=== PATIENT | female | born 1970 | race Hispanic/Latino ===

== ENCOUNTER 2023-02-03 23:38 | Emergency (ER) | payer OTHER ==
[~2023-02-03] VITALS: Ht 154.9 cm; Wt 69.9 kg
[2023-02-04 02:07] VITALS: BP 140/63
[2023-02-04] MEDS ORDERED: IBUP-1493 PO (02:08)
== END 2023-02-04 02:19 | disposition home or self-care (01) ==
LOC: EDH 23:38
DX: S96.912A Strain of unspecified muscle and tendon at ankle and foot level, left foot, initial encounter (principal); S80.01XA Contusion of right knee, initial encounter; M25.551 Pain in right hip; M25.512 Pain in left shoulder; E11.9 Type 2 diabetes mellitus without complications; W18.39XA Other fall on same level, initial encounter; Y93.89 Activity, other specified; Y92.89 Other specified places as the place of occurrence of the external cause; Y99.8 Other external cause status
CPT/HCPCS: 73030; 73502; 73562; 73600; 73630

== ENCOUNTER 2023-11-28 19:41 | Emergency (ER) | payer BC ==
[~2023-11-28] VITALS: Ht 154.9 cm; Wt 68.0 kg
[~2023-11-28 19:41] MED LIST: FERR-72 PO; IBUP-1493 PO
[2023-11-28 20:12] LABS: APPEARANCE,URINE CLEAR (CLEAR); BILIRUBIN,URINE NEGATIVE (NEGATIVE); COLOR,URINE LIGHT-YELLOW (YELLOW); GLUCOSE, URINE (UA) >=1000 mg/dL (NEGATIVE); KETONES,URINE NEGATIVE (NEGATIVE); LEUKOCYTE ESTERASE ,URINE NEGATIVE Leu/uL (NEGATIVE); NITRATE,URINE NEGATIVE (NEGATIVE); PROTEIN,URINE NEGATIVE (NEGATIVE); UROBILINOGEN,URINE 0.2 mg/dL (0.2-1.0)
[2023-11-28 20:13] LABS: ADD UA MICROSCOPIC YES; HCG,QUALITATIVE URINE NEGATIVE (NEGATIVE)
[2023-11-28 20:14] LABS: SQUAMOUS EPITHELIAL CELL,UR RARE /HPF (0-2); WBC,URINE 0-1 /HPF (0-1)
[2023-11-28 20:34] LABS: BASOPHILS # (AUTO) 0.08 K/uL (0.00-0.20); BASOPHILS % (AUTO) 1.1 % (0.0-5.0); EOSINOPHILS # (AUTO) 0.13 K/uL (0.00-0.70); EOSINOPHILS % (AUTO) 1.8 % (0.0-8.0); HEMATOCRIT 32.2 % (36-48); IMMATURE GRANULOCYTE ABSOLUTE 0.02 K/uL (0-1); LYMPHOCYTES # (AUTO) 1.8 K/uL (1.0-4.8); LYMPHOCYTES % (AUTO) 25.4 % (21.0-51.0); MEAN CORPUSCULAR HEMOGLOBIN 17.4 pg (27.0-33.0); MEAN CORPUSCULAR HGB CONC 25.8 g/dL (32.0-36.0); MEAN CORPUSCULAR VOLUME 67.6 fL (79-99); MONOCYTES # (AUTO) 0.4 K/uL (0.1-1.0); MONOCYTES % (AUTO) 5.1 % (3.0-13.0); NEUTROPHILS # (AUTO) 4.8 K/uL (1.8-7.7); NEUTROPHILS % (AUTO) 66.3 % (40.0-77.0); PLATELET COUNT (AUTO) 259 K/uL (130-400); RED BLOOD CELL COUNT(AUTO) 4.76 MIL/uL (4.00-5.50); RED CELL DISTRIBUTION WIDTH 26.3 % (11.0-15.5); WHITE BLOOD COUNT (AUTO) 7.2 K/uL (4.8-10.8)
[2023-11-28 20:43] LABS: CREATININE 0.6 mg/dL (0.5-1.5); POTASSIUM 3.5 mmol/L (3.5-5.1)
[2023-11-28 20:48] LABS: BILIRUBIN,TOTAL 0.4 mg/dL (0.2-1.0); TOTAL PROTEIN, SERUM 8.5 g/dL (6.0-8.3)
[2023-11-28] MEDS: MEDROXYPROGESTERONE ACET 5 MG TAB PO SCH (21:17)
[2023-11-28 21:29] VITALS: BP 105/53; PULSE 97; RESP 16; O2SAT 100
[2023-11-28] MEDS ORDERED: MEDR10TA PO (21:46)
== END 2023-11-28 22:05 | disposition home or self-care (01) ==
LOC: EDH 19:41
DX: N92.0 Excessive and frequent menstruation with regular cycle (principal); E11.9 Type 2 diabetes mellitus without complications; Z79.1 Long term (current) use of non-steroidal anti-inflammatories (NSAID); Z79.3 Long term (current) use of hormonal contraceptives
CPT/HCPCS: 36415; 80053; 81001; 81025; 83690; 85025; 86900; 86901

== ENCOUNTER 2024-04-05 15:55 | Emergency (ER) | payer BC ==
[~2024-04-05] VITALS: Ht 160 cm; Wt 68.0 kg
[~2024-04-05 15:55] MED LIST changes: +MEDR10TA PO
[2024-04-05] MEDS: KETOROLAC 60 MG VIAL (30MG/ML) IM ONE (16:39)
[2024-04-05] MEDS ORDERED: IBUP-2070 PO (19:13)
[2024-04-05] MEDS ORDERED: CYCL10TA16 PO (19:13)
[2024-04-05 19:54] VITALS: BP 125/69; PULSE 72; RESP 16; O2SAT 98
== END 2024-04-05 20:00 | disposition home or self-care (01) ==
LOC: EDH 15:55
DX: S90.32XA Contusion of left foot, initial encounter (principal); S96.912A Strain of unspecified muscle and tendon at ankle and foot level, left foot, initial encounter; S39.012A Strain of muscle, fascia and tendon of lower back, initial encounter; E11.9 Type 2 diabetes mellitus without complications; Z79.899 Other long term (current) drug therapy; Z90.49 Acquired absence of other specified parts of digestive tract; Z90.710 Acquired absence of both cervix and uterus; Z98.890 Other specified postprocedural states; W10.8XXA Fall (on) (from) other stairs and steps, initial encounter; Y93.89 Activity, other specified; Y92.89 Other specified places as the place of occurrence of the external cause; Y99.8 Other external cause status
CPT/HCPCS: 99284; 73610; 73630; 72110; 72220; 96372; J1885